=== PATIENT | male | born 1975 | race Caucasian/White ===

== ENCOUNTER 2017-01-03 20:30 | Outpatient (CLI) | payer BC | END 2017-01-04 07:05 | disposition home or self-care (01) | LOC: SLEEP 20:30 | PROVIDERS: ATTEND Nurse Practitioner | DX: Z93.0 Tracheostomy status; G47.33 Obstructive sleep apnea (adult) (pediatric) | CPT/HCPCS: 95810 ==

== ENCOUNTER → 2017-02-01 | Outpatient (CLI) | payer BC ==
--- NOTE | 2017-02-01 13:56 | Diagnostic Imaging Report ---
EXAMINATION: PA and lateral views of the chest. INDICATION: Sleep apnea. Narcosis. FINDINGS: There is pulmonary hyperinflation and prominence of the interstitial markings. No prior studies are available to assess for chronicity. No focal airspace opacity. No effusion or pneumothorax. The heart size is borderline enlarged. The mediastinum and celso appear unremarkable. IMPRESSION: Borderline cardiac size. Mild prominence of the interstitial markings without focal airspace consolidation. Dictated by: Dictated on workstation # [id number]
== END ==
LOC: LAB 12:26
PROVIDERS: ATTEND Internal Medicine Critical Care Medicine
DX: G47.30 Sleep apnea, unspecified (principal); R06.89 Other abnormalities of breathing
CPT/HCPCS: 71020

== ENCOUNTER 2017-04-11 22:06 | Emergency (ER) | payer BC ==
[~2017-04-11] VITALS: Ht 170.2 cm; Wt 47.2 kg
[~2017-04-11 22:06] MED LIST: FURO40TA4 PO; LOSA25TA21 PO; METO-333 PO; PRED10TA22 PO; SPIR25TA3 PO
[2017-04-11] MEDS ORDERED: ONDANSETRON 4 MG/2 ML (SDV) Z0FRAN IVP ONE (22:45)
[2017-04-11] MEDS ORDERED: ACETAMINOPHEN 500 MG TAB (TYLENOL) PO PRN (22:45)
[2017-04-11] MEDS ORDERED: NS IV 500 ML 500 ML IV ONE (22:50)
--- NOTE | 2017-04-11 22:50 | ED Respiratory ---
General Chief Complaint: Cough/Cold/Flu Symptoms Stated Complaint: FLU SYMPTOMS Source: patient, family (mom dad and ) Exam Limitations: no limitations History of Present Illness Time seen by provider: 22:39 Initial Comments Patient present ER by private conveyance with a significant history of muscular dystrophy. He has a significant chief complaint of today started experiencing some nasal and chest congestion, occasional dry nonproductive cough and feeling of chills like he had a fever. He did get his flu shot. He was in the hospital in January with pneumonia and has been doing well since then and is worried and wants to get on top of this if he has the flu. 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 He has a little nausea but no vomiting, no rash diarrhea, constipation, abdominal pain or chest pain. He has no headache, ear pain, epistaxis. He does have some clear rhinorrhea. He took some Zicam at noon and that helps with his symptoms a lot but then he started chilling about an hour or 2 before coming in so he decided to come and get checked out. The patient does not use oxygen or ventilators during the day but he does sleep on the ventilator and has a tracheostomy fenestrated with a button. He says his oxygen sats typically run 85 -90% on room air. Allergies and Home Medications Allergies Coded Allergies: levofloxacin (Verified Allergy, Unknown, 02/02/17) Home Medications Furosemide 40 Mg Tablet, 40 MG PO DAILY, (Reported) LAST FILLED 12/13/16 #30 Losartan Potassium 25 Mg Tablet, 25 MG PO DAILY, #30 Prescribed by: EVITA DIAS on 02/16/17 1436 Metoprolol Tartrate 25 Mg Tablet, 25 MG PO BID, #30 Prescribed by: EVITA DIAS on 02/16/17 1436 Prednisone 10 Mg Tab.ds.pk, 10 MG PO DAILY, #21 Take 6 tabs(60mg)daily,decrease by 1 tab(10MG)daily. Prescribed by: EVITA DIAS on 02/16/17 1436 Constitutional: chills, fever, malaise EENTM: nose congestion, throat pain, No ear discharge, No hearing loss, No ear pain, No eye pain, No nose pain Respiratory: cough, No phlegm, No short of breath, No wheezing Cardiovascular: No chest pain, No palpitations, No syncope Gastrointestinal: No abdominal pain, No constipation, No diarrhea, nausea Genitourinary: No discharge, No dysuria Musculoskeletal: No back pain, No joint pain Skin: No pruritus, No rash Psychiatric/Neurological: Denies Headache, Denies Numbness, Denies Paresthesia Past Yqabizs-Amqwzu-Uqlnvk Hx Patient Social History Alcohol Use: Denies Use Recreational Drug Use: No Smoking Status: Never a Smoker Recent Foreign Travel: No Contact w/Someone Who Travel: No Recent Hopitalizations: Yes (january- pneumonia/chf) Physical Abuse: No Sexual Abuse: No Mistreated: No Fear: No Immunizations Up To Date Tetanus Booster (TDap): Less than 5yrs Date of Pneumonia Vaccine: Jan 12, 2015 Date of Influenza Vaccine: Feb 07, 2017 Seasonal Allergies Seasonal Allergies: No Surgeries History of Surgeries: Yes (cleft palate, trach) Surgeries: Abdominal, Testicular, Tracheostomy Respiratory History of Respiratory Disorde: Yes (TRACHEOSTOMY) Respiratory Disorders: Sleep Apnea Currently Using CPAP: Yes Cardiovascular History of Cardiac Disorders: Yes (CHF, EF 40-45%, CARDIAC ARREST (2002)) Cardiac Disorders: Cardiomyopathy Neurological History of Neurological Disord: Yes (MUSCULAR DYSTROPHY) Genitourinary History of Genitourinary Disor: No Gastrointestinal History of Gastrointestinal Di: No Musculoskeletal History of Musculoskeletal Dis: No Endocrine History of Endocrine Disorders: Yes HEENT History of HEENT Disorders: Yes (CLEFT PALATE/LIP, TRACHEOSTOMY) Cancer History of Cancer: No Psychosocial History of Psychiatric Problem: No Suicide Risk Score: 1 Integumentary History of Skin or Integumenta: No Blood Transfusions History of Blood Disorders: No Adverse Reaction to a Blood Tr: No Family Medical History Significant Family History: No Pertinent Family Hx Family Medial History: Physical Exam Vital Signs Vital Sign - Last 12Hours 04/11/17 22:20 Temp 100.8 Pulse 103 Resp 20 B/P (MAP) 146/74 (98) Pulse Ox 93 O2 Delivery Room Air O2 Flow Rate 92.00 Capillary Refill : General Appearance: no apparent distress, thin Eyes: Bilateral Eye Normal Inspection, Bilateral Eye PERRL, Bilateral Eye EOMI HEENT: PERRL/EOMI, normal ENT inspection, pharynx normal, pharyngeal erythema, other Neck: non-tender, normal inspection Respiratory: chest non-tender, no respiratory distress, no accessory muscle use , rhonchi (few scattered left lower) Cardiovascular: normal peripheral pulses, regular rate, rhythm, no edema Gastrointestinal: non tender, soft Extremities: normal range of motion, normal inspection, no pedal edema, normal capillary refill Neurologic/Psychiatric: alert, normal mood/affect, oriented x 3 Skin: normal color, warm/dry Lymphatic: no adenopathy Focused Exam Evaluation Lactate Level Laboratory Tests 04/11/17 22:31: Lactic Acid Level 0.62 Lactic Acid Level Laboratory Tests Test 04/11/17 22:31 Lactic Acid Level 0.62 MMOL/L (0.50-2.00) Progress/Results/Core Measures Suspected Sepsis SIRS Temperature: Pulse: Respiratory Rate: Laboratory Tests 04/11/17 22:31: White Blood Count 9.6 Blood Pressure / Mean: Laboratory Tests 04/11/17 22:31: Lactic Acid Level 0.62 Laboratory Tests 04/11/17 22:31: Creatinine 0.49L, INR Comment 1.0, Platelet Count 259, Total Bilirubin 0.9 Results/Orders Lab Results Laboratory Tests Test 04/11/17 22:31 04/11/17 23:05 04/12/17 00:07 Range/Units White Blood Count 9.6 4.3-11.0 10^3/uL Red Blood Count 4.94 4.35-5.85 10^6/uL Hemoglobin 13.6 13.3-17.7 G/DL Hematocrit 43 40-54 % Mean Corpuscular Volume 88 80-99 FL Mean Corpuscular Hemoglobin 28 25-34 PG Mean Corpuscular Hemoglobin Concent 31 L 32-36 G/DL Red Cell Distribution Width 20.3 H 10.0-14.5 % Platelet Count 259 130-400 10^3/uL Mean Platelet Volume 9.0 7.4-10.4 FL Neutrophils (%) (Auto) 83 H 42-75 % Lymphocytes (%) (Auto) 10 L 12-44 % Monocytes (%) (Auto) 8 0-12 % Eosinophils (%) (Auto) 0 0-10 % Basophils (%) (Auto) 0 0-10 % Neutrophils # (Auto) 7.9 H 1.8-7.8 X 10^3 Lymphocytes # (Auto) 0.9 L 1.0-4.0 X 10^3 Monocytes # (Auto) 0.7 0.0-1.0 X 10^3 Eosinophils # (Auto) 0.0 0.0-0.3 10^3/uL Basophils # (Auto) 0.0 0.0-0.1 10^3/uL Prothrombin Time 13.7 12.2-14.7 SEC INR Comment 1.0 0.8-1.4 Activated Partial Thromboplast Time 33 24-35 SEC Sodium Level 140 135-145 MMOL/L Potassium Level 3.9 3.6-5.0 MMOL/L Chloride Level 96 L 98-107 MMOL/L Carbon Dioxide Level 30 21-32 MMOL/L Anion Gap 14 5-14 MMOL/L Blood Urea Nitrogen 9 7-18 MG/DL Creatinine 0.49 L 0.60-1.30 MG/DL Estimat Glomerular Filtration Rate > 60 BUN/Creatinine Ratio 18 Glucose Level 120 H 70-105 MG/DL Lactic Acid Level 0.62 0.50-2.00 MMOL/L Calcium Level 9.7 8.5-10.1 MG/DL Total Bilirubin 0.9 0.1-1.0 MG/DL Aspartate Amino Transf (AST/SGOT) 54 H 5-34 U/L Alanine Aminotransferase (ALT/SGPT) 39 0-55 U/L Alkaline Phosphatase 77 40-136 U/L Total Protein 6.5 6.4-8.2 GM/DL Albumin 4.0 3.2-4.5 GM/DL Group A Streptococcus Screen NEGATIVE NEGATIVE Urine Color YELLOW Urine Clarity SLIGHTLY CLOUDY Urine pH 5 5-9 Urine Specific [place] 1.025 H 1.016-1.022 Urine Protein 1+ H NEGATIVE Urine Glucose (UA) NEGATIVE NEGATIVE Urine Ketones 2+ H NEGATIVE Urine Nitrite NEGATIVE NEGATIVE Urine Bilirubin NEGATIVE NEGATIVE Urine Urobilinogen 1 NORMAL MG/DL Urine Leukocyte Esterase 1+ H NEGATIVE Urine RBC (Auto) NEGATIVE NEGATIVE Urine RBC NONE /HPF Urine WBC 2-5 /HPF Urine Squamous Epithelial Cells 2-5 /HPF Urine Crystals NONE /LPF Urine Bacteria TRACE /HPF Urine Casts PRESENT /LPF Urine Hyaline Casts RARE /LPF Urine Mucus MODERATE H /LPF Urine Culture Indicated NO Micro Results Microbiology 04/11/17 Influenza Types A,B Antigen (SHIMA) - Final, Complete My Orders Orders - NAVI MATIAS Chest Pa/Lat (2 View) (04/11/17 22:42) Cbc With Automated Diff (04/11/17 22:42) Comprehensive Metabolic Panel (04/11/17 22:42) Lactic Acid Analyzer (04/11/17 22:42) Blood Culture (04/11/17 22:42) Sputum Culture (04/11/17 22:42) Ua Culture If Indicated (04/11/17 22:42) Protime With Inr (04/11/17 22:42) Partial Thromboplastin Time (04/11/17 22:42) O2 (04/11/17 22:42) Acetaminophen Tablet (Tylenol Tablet) (04/11/17 22:45) Saline Lock/Iv-Start (04/11/17 22:42) Vital Signs Adult Sepsis Patie Q1H (04/11/17 22:42) Remove Rings In Anticipation O (04/11/17 22:42) Influenza A And B Antigens (04/11/17 22:42) Ondansetron Injection (Zofran Injectio (04/11/17 22:45) Rapid Strep A Screen (04/11/17 22:42) Ceftriaxone Injection (Rocephin Injectio (04/11/17 23:00) Ns Iv 500 Ml (Sodium Chloride 0.9%) (04/11/17 22:50) Medications Given in ED Current Medications Medications Dose Ordered Sig/Yaneth Route Start Time Stop Time Status Last Admin Dose Admin Acetaminophen 1,000 mg ONCE PRN PO 04/11/17 22:45 04/11/17 22:55 DC 04/11/17 22:54 1,000 MG Ceftriaxone Sodium 1000 mg/ Sodium Chloride 50 ml @ 100 mls/hr ONCE ONCE IV 04/11/17 23:00 04/11/17 23:29 DC 04/11/17 22:59 100 MLS/HR Ondansetron HCl 4 mg ONCE ONCE IVP 04/11/17 22:45 04/11/17 22:46 DC 04/11/17 22:53 4 MG Sodium Chloride 500 ml @ 0 mls/hr Q0M ONCE IV 04/11/17 22:50 04/11/17 22:51 DC 04/11/17 22:59 0 MLS/HR Vital Signs/I&O Vital Sign - Last 12Hours 04/11/17 04/11/17 04/11/17 04/11/17 22:20 22:20 22:46 23:00 Temp 100.8 100.8 Pulse 103 94 Resp 20 20 B/P (MAP) 146/74 (98) 113/63 Pulse Ox 93 92 90 O2 Delivery Room Air Room Air Room Air Room Air O2 Flow Rate 92.00 04/11/17 04/12/17 23:30 00:00 Pulse 78 89 Resp 20 18 B/P (MAP) 127/54 112/61 Pulse Ox 92 91 O2 Delivery Room Air Room Air Capillary Refill : Progress Note #1: Time: 22:49 Progress Note His sats of been in the upper 80s to low 90s since he's been here on room air. We'll get a chest x-ray to evaluate those possible rales heard. We'll check for influenza want him for strep. Because of his tachycardia in the low 100 110 range we will also start a sepsis workup. Respiratory seems most likely case so Rocephin apparently good place to start for antibiotics. Progress Note #2: Time: 00:54 Progress Note Vitals been fine since he's been here he's had nonproductive cough only occasionally. X-rays unremarkable labs unremarkable for any blood let him go home with precautions for return and treatment options for the cold. Diagnostic Imaging Diagonstic Imaging: Xray Plain Films/CT/US/NM/MRI: chest (2v) Comments No acute cardiopulmonary processes noted. Fenestrate a tracheostomy in place. Reviewed: Reviewed by Me Departure Impression Impression: Primary Impression: Upper respiratory infection Qualified Codes: J06.9 - Acute upper respiratory infection, unspecified; B97.89 - Other viral agents as the cause of diseases classified elsewhere Disposition: 01 HOME, SELF-CARE Condition: Stable Departure-Patient Inst. Decision time for Depature: 00:55 Referrals: GLEN CLEMENTS MD (PCP) Primary Care Physician Patient Instructions: Viral Upper Respiratory Infection, Adult (DC) Add. Discharge Instructions: Plenty of fluids use Tylenol 1000 mg every 8 hours and or ibuprofen 800 mg every 8 hours as needed for body aches, chills, fever. You can use over-the- counter cough and cold remedies as necessary for your symptoms. Get some rest and if you start developing high fevers but did not get better over the next 5- 7 days or other symptoms such as productive cough, nausea, chest pain, shortness of breath he should return to the ER or to your primary care physician for reevaluation. All discharge instructions reviewed with patient and/or family. Voiced understanding. Copy Copies To 1: GLEN CLEMENTS MD, TITUS J Apr 11, 2017 22:50
[2017-04-11 22:52] LABS: BASOPHILS % (AUTO) 0 % (0-10); EOSINOPHILS % (AUTO) 0 % (0-10); HEMATOCRIT 43 % (40-54); HEMOGLOBIN 13.6 G/DL (13.3-17.7); LYMPHOCYTES # (AUTO) 0.9 X 10^3 (1.0-4.0); LYMPHOCYTES % (AUTO) 10 % (12-44); MEAN CORPUSCULAR HEMOGLOBIN 28 PG (25-34); MEAN CORPUSCULAR HGB CONC 31 G/DL (32-36); MEAN CORPUSCULAR VOLUME 88 FL (80-99); MONOCYTES # (AUTO) 0.7 X 10^3 (0.0-1.0); MONOCYTES % (AUTO) 8 % (0-12); NEUTROPHILS # (AUTO) 7.9 X 10^3 (1.8-7.8); NEUTROPHILS % (AUTO) 83 % (42-75); PLATELET COUNT 259 10^3/uL (130-400); RED BLOOD COUNT 4.94 10^6/uL (4.35-5.85); RED CELL DISTRIBUTION WIDTH 20.3 % (10.0-14.5); WHITE BLOOD COUNT 9.6 10^3/uL (4.3-11.0)
[2017-04-11] MEDS ORDERED: cefTRIAXone INJECTION 1,000 MG in NS (IVPB) 50 ML IV ONE (23:00)
[2017-04-11 23:02] LABS: PROTHROMBIN TIME PATIENT 13.7 SEC (12.2-14.7)
[2017-04-11 23:03] LABS: ALANINE AMINOTRANSFERASE 39 U/L (0-55); ALKALINE PHOSPHATASE 77 U/L (40-136); BILIRUBIN,TOTAL 0.9 MG/DL (0.1-1.0); BUN/CREATININE RATIO 18; CALCIUM 9.7 MG/DL (8.5-10.1); CARBON DIOXIDE 30 MMOL/L (21-32); CHLORIDE 96 MMOL/L (98-107); CREATININE SERUM 0.49 MG/DL (0.60-1.30); GFR ESTIMATED > 60; GLUCOSE 120 MG/DL (70-105); POTASSIUM 3.9 MMOL/L (3.6-5.0); SODIUM 140 MMOL/L (135-145); TOTAL PROTEIN 6.5 GM/DL (6.4-8.2)
[2017-04-12 00:20] LABS: BILIRUBIN,URINE NEGATIVE (NEGATIVE); CLARITY,URINE SLIGHTLY CLOUDY; GLUCOSE, URINE (UA) NEGATIVE (NEGATIVE); KETONES,URINE 2+ (NEGATIVE); LEUKOCYTE ESTERASE ,URINE 1+ (NEGATIVE); NITRITE,URINE NEGATIVE (NEGATIVE); PH,URINE 5 (5-9); PROTEIN,URINE 1+ (NEGATIVE); UROBILINOGEN,URINE 1 MG/DL (NORMAL)
[2017-04-12 00:21] LABS: COLOR,URINE YELLOW
[2017-04-12 00:26] LABS: BACTERIA,URINE TRACE /HPF; HYALINE CASTS, URINE RARE /LPF
[2017-04-12 01:11] VITALS: BP 115/60
--- NOTE | 2017-04-12 06:32 | Diagnostic Imaging Report ---
Indication: Shortness of breath PA and lateral chest Patient has a tracheostomy tube. Heart size and pulmonary vascularity are normal. Lungs are clear. There are no effusions or pneumothoraces. Impression: No acute abnormalities in the chest Dictated by: Dictated on workstation # [id number]
== END 2017-04-12 01:11 | disposition home or self-care (01) ==
LOC: EDUNIT# 22:06 → ER 22:07
DX: J06.9 Acute upper respiratory infection, unspecified (principal); I42.9 Cardiomyopathy, unspecified; G47.30 Sleep apnea, unspecified; I50.9 Heart failure, unspecified; Z98.890 Other specified postprocedural states; Z86.74 Personal history of sudden cardiac arrest; Z87.01 Personal history of pneumonia (recurrent)
CPT/HCPCS: 36415; 71046; 80053; 81000; 83605; 85025; 85610; 85730; 87040; 87430; 87804; 96361; 96365; 96375

== ENCOUNTER → 2017-04-18 | Outpatient (CLI) | payer BC ==
--- NOTE | 2017-04-18 12:46 | Diagnostic Imaging Report ---
INDICATION: Pneumonia. COMPARISON: Comparison made with prior examination 04/11/2017. FINDINGS: The heart size is normal. Some left basilar atelectasis and/or pneumonitis. There appears to be a small left pleural effusion. No pneumothorax. Mediastinum is unremarkable. Tracheostomy tube remains in place. IMPRESSION: Interval development of some left basilar atelectasis and/or pneumonitis and small left pleural effusion. Dictated by: Dictated on workstation # [id number]
== END ==
LOC: RAD 11:20
PROVIDERS: ATTEND Nurse Practitioner Family
DX: J18.9 Pneumonia, unspecified organism (principal); J90 Pleural effusion, not elsewhere classified; J96.20 Acute and chronic respiratory failure, unspecified whether with hypoxia or hypercapnia
CPT/HCPCS: 71046

== ENCOUNTER 2019-01-04 23:53 | Inpatient (IN) | payer BC ==
[~2019-01-04] VITALS: Ht 170.2 cm; Wt 64.1 kg
[~2019-01-04 23:53] MED LIST changes: -LOSA25TA21 PO; +LOSA25TA41 PO; -SPIR25TA3 PO; +SPIR25TA5 PO
[2019-01-05] VITALS (9 sets, daily range): BP systolic 95–123; BP diastolic 55–72
[2019-01-05] MEDS ORDERED: FAMOTIDINE 20 MG (PEPCID) TABLET PO STA (00:37)
[2019-01-05] MEDS ORDERED: LACTATED RINGERS 1,000 ML IV ONE (00:37)
[2019-01-05] MEDS ORDERED: ANTACID SUSP 30 ML UDC (MYLANTA) PO ONE (00:45)
[2019-01-05] MEDS ORDERED: ASPIRIN 81 MG CHEW (CHILDREN'S ASA) PO ONE (00:45)
[2019-01-05] MEDS ORDERED: LIDOCAINE 2% VISCOUS 15 ML UDC PO ONE (00:45)
--- NOTE | 2019-01-05 00:45 | ED Abdominal Pain ---
General Stated Complaint: ABD PAIN Source of Information: Patient, Spouse Exam Limitations: No Limitations History of Present Illness Date Seen by Provider: Jan 05, 2019 Time Seen by Provider: 00:30 Initial Comments Epigastric abdominal pain intermittently over the last week. He has not seen anyone for it. He is not having any nausea or diarrhea. He had a bowel movement earlier today. He has a history of multiple sclerosis, wheelchair bound and history of severe sleep apnea which resulted in him having a tracheostomy placed. He is not having any coughing or shortness of breath and does not require oxygen. He does use a ventilator at night on the tracheostomy to help with his sleep apnea. No history of asthma. He says he smoked twice in his life. He uses DuoNeb, inhaled corticosteroids and LABA. He tried Pepto-Bismol with no relief tonight. No nausea or vomiting. He's had no abdominal surgeries or trauma. He had pizza for dinner last night. Allergies and Home Medications Allergies Coded Allergies: levofloxacin (Verified Allergy, Unknown, 02/02/17) Home Medications Furosemide 40 Mg Tablet, 40 MG PO DAILY, (Reported) LAST FILLED 12/13/16 #30 Losartan Potassium 25 Mg Tablet, 25 MG PO DAILY Prescribed by: EVITA MORROW on 02/16/17 1436 Metoprolol Tartrate 25 Mg Tablet, 25 MG PO BID Prescribed by: EVITA MORROW on 02/16/17 1436 Prednisone 10 Mg Tab.ds.pk, 10 MG PO DAILY Take 6 tabs(60mg)daily,decrease by 1 tab(10MG)daily. Prescribed by: EVITA MORROW on 02/16/17 1436 Patient Home Medication List Home Medication List Reviewed: Yes Review of Systems Review of Systems Constitutional: No chills, No fever EENTM: No Blurred Vision, No Double Vision Respiratory: Denies Cough, Denies Shortness of Air Cardiovascular: Denies Chest Pain, Denies Edema Gastrointestinal: See HPI; Denies Abdomen Distended; Abdominal Pain; Denies Constipated, Denies Diarrhea, Denies Nausea, Denies Poor Fluid Intake, Denies Vomiting Genitourinary: Denies Burning, Denies Discharge, Denies Drainage Past Tckaktt-Htzuhp-Cwiwjo Hx Patient Social History Alcohol Use: Occasionally Uses Recreational Drug Use: No Smoking Status: Never a Smoker Recent Foreign Travel: No Contact w/Someone Who Travel: No Recent Hopitalizations: Yes (october- sepsis pneumonia/chf) Immunizations Up To Date Tetanus Booster (TDap): Less than 5yrs Date of Pneumonia Vaccine: Jan 12, 2015 Date of Influenza Vaccine: Feb 07, 2017 Seasonal Allergies Seasonal Allergies: No Past Medical History Surgeries: Yes (cleft palate, trach) Abdominal, Testicular, Tracheostomy Respiratory: Yes (TRACHEOSTOMY) Sleep Apnea Currently Using CPAP: Yes Cardiac: Yes (CHF, EF 40-45%, CARDIAC ARREST (2002)) Cardiomyopathy Neurological: Yes (MUSCULAR DYSTROPHY) Genitourinary: No Gastrointestinal: No Musculoskeletal: No Endocrine: Yes HEENT: Yes (CLEFT PALATE/LIP, TRACHEOSTOMY) Cancer: No Psychosocial: No Integumentary: No Blood Disorders: No Adverse Reaction/Blood Tranf: No Family Medical History No Pertinent Family Hx Physical Exam Vital Signs Vital Signs - First Documented 01/05/19 00:17 Temp 36.7 Pulse 79 Resp 20 B/P (MAP) 158/91 (113) Pulse Ox 98 O2 Delivery OxyMask O2 Flow Rate 10.00 Capillary Refill : Height/Weight/BMI Height: 5'7.00" Weight: 104lbs. 8.0oz. 47.966116fh; 17.0 BMI Method:Stated General Appearance: mild distress, thin HEENT: PERRL/EOMI, TMs normal, pharynx normal Neck: full range of motion, normal inspection Respiratory: no accessory muscle use, respiratory distress (mild), crackles (right base) Cardiovascular: normal peripheral pulses, regular rate, rhythm, tachycardia Peripheral Pulses: 2+ Dorsalis Pedis (R), 2+ Left Dors-Pedis (L), 2+ Radial Pulses (R), 2+ Radial Pulses (L) Gastrointestinal: normal bowel sounds, soft, no organomegaly, tenderness (epigastric) Extremities: normal inspection, no pedal edema, normal capillary refill Neurologic/Psychiatric: alert, normal mood/affect, oriented x 3 Skin: normal color, warm/dry Progress/Results/Core Measures Results/Orders Lab Results Laboratory Tests Test 01/05/19 00:37 01/05/19 00:58 01/05/19 01:11 Range/Units White Blood Count 16.7 H 4.3-11.0 10^3/uL Red Blood Count 5.09 4.35-5.85 10^6/uL Hemoglobin 15.2 13.3-17.7 G/DL Hematocrit 48 40-54 % Mean Corpuscular Volume 94 80-99 FL Mean Corpuscular Hemoglobin 30 25-34 PG Mean Corpuscular Hemoglobin Concent 32 32-36 G/DL Red Cell Distribution Width 13.8 10.0-14.5 % Platelet Count 296 130-400 10^3/uL Mean Platelet Volume 9.6 7.4-10.4 FL Neutrophils (%) (Auto) 89 H 42-75 % Lymphocytes (%) (Auto) 7 L 12-44 % Monocytes (%) (Auto) 4 0-12 % Eosinophils (%) (Auto) 0 0-10 % Basophils (%) (Auto) 0 0-10 % Neutrophils # (Auto) 14.9 H 1.8-7.8 X 10^3 Lymphocytes # (Auto) 1.2 1.0-4.0 X 10^3 Monocytes # (Auto) 0.6 0.0-1.0 X 10^3 Eosinophils # (Auto) 0.0 0.0-0.3 10^3/uL Basophils # (Auto) 0.0 0.0-0.1 10^3/uL Sodium Level 141 135-145 MMOL/L Potassium Level 3.7 3.6-5.0 MMOL/L Chloride Level 98 98-107 MMOL/L Carbon Dioxide Level 32 21-32 MMOL/L Anion Gap 11 5-14 MMOL/L Blood Urea Nitrogen 9 7-18 MG/DL Creatinine 0.53 L 0.60-1.30 MG/DL Estimat Glomerular Filtration Rate > 60 BUN/Creatinine Ratio 17 Glucose Level 127 H 70-105 MG/DL Calcium Level 9.8 8.5-10.1 MG/DL Corrected Calcium 9.6 8.5-10.1 MG/DL Total Bilirubin 0.4 0.1-1.0 MG/DL Aspartate Amino Transf (AST/SGOT) 49 H 5-34 U/L Alanine Aminotransferase (ALT/SGPT) 48 0-55 U/L Alkaline Phosphatase 99 40-136 U/L Troponin I < 0.028 <0.028 NG/ML C-Reactive Protein High Sensitivity 2.16 H 0.00-0.50 MG/DL B-Type Natriuretic Peptide < 10.0 <100.0 PG/ML Total Protein 7.5 6.4-8.2 GM/DL Albumin 4.3 3.2-4.5 GM/DL Lipase 34 8-78 U/L Blood Gas Puncture Site LEFT RADIAL Blood Gas Patient Temperature 36.7 Arterial Blood pH 7.35 L 7.37-7.43 Arterial Blood Partial Pressure CO2 61 H 35-45 MMHG Arterial Blood Partial Pressure O2 77 L 79-93 MMHG Arterial Blood HCO3 33 H 23-27 MMOL/L Arterial Blood Total CO2 34.8 H 21.0-31.0 MMOL/L Arterial Blood Oxygen Saturation 94 94-100 % Arterial Blood Base Excess 7.6 H -2.5-2.5 MMOL/L Jose Antonio Test POSITIVE Blood Gas Ventilator Setting NO Blood Gas Inspired Oxygen 10 BLOW BY Urine Color YELLOW Urine Clarity CLEAR Urine pH 7 5-9 Urine Specific [place] 1.020 1.016-1.022 Urine Protein NEGATIVE NEGATIVE Urine Glucose (UA) NEGATIVE NEGATIVE Urine Ketones 3+ H NEGATIVE Urine Nitrite NEGATIVE NEGATIVE Urine Bilirubin NEGATIVE NEGATIVE Urine Urobilinogen NORMAL NORMAL MG/DL Urine Leukocyte Esterase 2+ H NEGATIVE Urine RBC (Auto) NEGATIVE NEGATIVE Urine RBC RARE /HPF Urine WBC 10-25 H /HPF Urine Squamous Epithelial Cells 0-2 /HPF Urine Crystals NONE /LPF Urine Bacteria FEW H /HPF Urine Casts NONE /LPF Urine Mucus MODERATE H /LPF Urine Culture Indicated YES My Orders Orders - NAVI MATIAS Ua Culture If Indicated (01/04/19 23:54) Chest 1 View, Ap/Pa Only (01/05/19 00:37) BNP (01/05/19 00:37) Cbc With Automated Diff (01/05/19 00:37) Comprehensive Metabolic Panel (01/05/19 00:37) Hs C Reactive Protein (01/05/19 00:37) Lipase (01/05/19 00:37) Troponin I (01/05/19 00:37) Ed Iv/Invasive Line Start (01/05/19 00:37) Lactated Ringers (Lr 1000 Ml Iv Solution (01/05/19 00:37) Aspirin Chewable Tablet (Baby Aspirin Ch (01/05/19 00:45) Lidocaine 2% Viscous 15 Ml (Xylocaine Vi (01/05/19 00:45) Famotidine Tablet (Pepcid Tablet) (01/05/19 00:37) Antacid Suspension (Mylanta Suspension (01/05/19 00:45) Continuous Ekg Monitoring (01/05/19 00:37) Ekg Tracing (01/05/19 00:37) O2 (01/05/19 00:37) Manual Differential (01/05/19 00:37) Arterial Blood Gas (01/05/19 01:03) Urine Culture (01/05/19 01:11) Ceftriaxone For Iv Use (Rocephin For I (01/05/19 01:45) Azithromycin Injection (Zithromax Inject (01/05/19 01:45) Medications Given in ED Current Medications Medications Dose Ordered Sig/Yaneth Route Start Time Stop Time Status Last Admin Dose Admin Al Hydrox/Mg Hydrox/Simethicone 30 ml ONCE ONCE PO 01/05/19 00:45 01/05/19 00:46 DC 01/05/19 00:56 30 ML Aspirin 324 mg ONCE ONCE PO 01/05/19 00:45 01/05/19 00:46 DC 01/05/19 00:55 324 MG Lactated Ringer's 1,000 ml @ 0 mls/hr Q0M ONCE IV 01/05/19 00:37 01/05/19 00:42 DC 01/05/19 00:56 1,000 MLS/HR Lidocaine HCl 15 ml ONCE ONCE PO 01/05/19 00:45 01/05/19 00:46 DC 01/05/19 00:56 15 ML Vital Signs/I&O 01/05/19 00:17 Temp 36.7 Pulse 79 Resp 20 B/P (MAP) 158/91 (113) Pulse Ox 98 O2 Delivery OxyMask O2 Flow Rate 10.00 Progress Progress Note : Time: 02:29 Progress Note GI cocktail is helping his epigastric pain some but he still having some mild pain so we'll give him some Toradol. ABG demonstrates CO2 retention, hypoxia which correlates with the hypoxia seen on the monitor. Possible right lower lobe infiltrate along with the crackles heard and history of productive cough but no fevers. We'll treat him for pneumonia and the patient. The patient brought his own ventilator support and allow respiratory set that up for him along with some oxygen and put him on stepdown. Initial ECG Impression Date: Jan 05, 2019 Initial ECG Impression Time: 01:30 Initial ECG Rate: 96 Initial ECG Rhythm: Normal Sinus Initial ECG Intervals: QT (471) Initial ECG Impression: Normal Comment Normal sinus rhythm incomplete right bundle-branch block no clinically evident ST elevation or depression. Mild tremor artifact. Diagnostic Imaging Diagonstic Imaging: Xray Plain Films/CT/US/NM/MRI: chest Comments Some pneumonitis versus infiltrate right lower lobe Reviewed: Reviewed by Me Departure Communication (Admissions) Time/Spoke to Admitting Phy: 02:45 Discussed the case, labs, EKG, chest x-ray the and workup with Dr. Morrow. She agrees to admit the patient on a ventilator and consult pulmonology morning. Impression Primary Impression: Pneumonia Qualified Codes: J18.1 - Lobar pneumonia, unspecified organism Additional Impressions: Acute on chronic respiratory failure with hypoxia and hypercapnia Epigastric pain Disposition: ADMITTED INPATIENT Condition: Stable Admissions Decision to Admit Reason: Admit from ER (General) Decision to Admit/Date: Jan 05, 2019 Time/Decision to Admit Time: 02:27 Departure-Patient Inst. Referrals: GLEN CLEMENTS MD (PCP/Family) Primary Care Physician NAVI MATIAS Jan 05, 2019 00:45
[2019-01-05 00:53] LABS: BASOPHILS % (AUTO) 0 % (0-10); EOSINOPHILS % (AUTO) 0 % (0-10); HEMATOCRIT 48 % (40-54); HEMOGLOBIN 15.2 G/DL (13.3-17.7); LYMPHOCYTES # (AUTO) 1.2 X 10^3 (1.0-4.0); LYMPHOCYTES % (AUTO) 7 % (12-44); MEAN CORPUSCULAR HEMOGLOBIN 30 PG (25-34); MEAN CORPUSCULAR HGB CONC 32 G/DL (32-36); MEAN CORPUSCULAR VOLUME 94 FL (80-99); MEAN PLATELET VOLUME 9.6 FL (7.4-10.4); MONOCYTES # (AUTO) 0.6 X 10^3 (0.0-1.0); MONOCYTES % (AUTO) 4 % (0-12); NEUTROPHILS # (AUTO) 14.9 X 10^3 (1.8-7.8); NEUTROPHILS % (AUTO) 89 % (42-75); PLATELET COUNT 296 10^3/uL (130-400); RED CELL DISTRIBUTION WIDTH 13.8 % (10.0-14.5); WHITE BLOOD COUNT 16.7 10^3/uL (4.3-11.0)
[2019-01-05 01:11] LABS: ABG BASE EXCESS 7.6 MMOL/L (-2.5-2.5); ABG OXYGEN SATURATION 94 % (94-100); ABG PCO2 61 MMHG (35-45); ABG PH 7.35 (7.37-7.43); ABG PO2 77 MMHG (79-93); ABG TCO2 34.8 MMOL/L (21.0-31.0); ALLENS TEST POSITIVE; INSPIRED O2 10 BLOW BY; PATIENT TEMP 36.7; VENTILATOR NO
[2019-01-05 01:11] LABS: ALANINE AMINOTRANSFERASE 48 U/L (0-55); ALBUMIN 4.3 GM/DL (3.2-4.5); ALKALINE PHOSPHATASE 99 U/L (40-136); BILIRUBIN,TOTAL 0.4 MG/DL (0.1-1.0); BUN/CREATININE RATIO 17; CALCIUM 9.8 MG/DL (8.5-10.1); CARBON DIOXIDE 32 MMOL/L (21-32); CHLORIDE 98 MMOL/L (98-107); CREATININE SERUM 0.53 MG/DL (0.60-1.30); GFR ESTIMATED > 60; GLUCOSE 127 MG/DL (70-105); LIPASE 34 U/L (8-78); POTASSIUM 3.7 MMOL/L (3.6-5.0); SODIUM 141 MMOL/L (135-145); TOTAL PROTEIN 7.5 GM/DL (6.4-8.2)
[2019-01-05 01:19] LABS: BILIRUBIN,URINE NEGATIVE (NEGATIVE); CLARITY,URINE CLEAR; COLOR,URINE YELLOW; GLUCOSE, URINE (UA) NEGATIVE (NEGATIVE); KETONES,URINE 3+ (NEGATIVE); LEUKOCYTE ESTERASE ,URINE 2+ (NEGATIVE); NITRITE,URINE NEGATIVE (NEGATIVE); PH,URINE 7 (5-9); PROTEIN,URINE NEGATIVE (NEGATIVE); UROBILINOGEN,URINE NORMAL (NORMAL)
[2019-01-05 01:33] LABS: BACTERIA,URINE FEW /HPF; RBC,URINE RARE /HPF; SQUAMOUS EPITHELIAL CELL,UR 0-2 /HPF
[2019-01-05] MEDS ORDERED: cefTRIAXone FOR IV USE 1,000 MG in WATER (STERILE) FOR INJECTION 10 ML IV ONE (01:45)
[2019-01-05] MEDS ORDERED: AZITHROMYCIN INJECTION 500 MG in NS (IVPB) 250 ML IV ONE (01:45)
[2019-01-05] MEDS ORDERED: KETOROLAC 30 MG/ML VIAL IVP ONE (02:45)
[2019-01-05] MEDS ORDERED: NS W/KCL 20 MEQ/L 1,000 ML IV SCH (03:00)
[2019-01-05 03:34] LABS: LYMPHOCYTES % (MANUAL) 8 %; MONOCYTES % (MANUAL) 3 %; NEUTROPHILS % (MANUAL) 89 %
[2019-01-05] MEDS ORDERED: ONDANSETRON 4 MG/2 ML (SDV) Z0FRAN IV PRN (05:00)
[2019-01-05] MEDS ORDERED: KETOROLAC 15 MG/ML VIAL IV PRN (05:00)
[2019-01-05] MEDS ORDERED: ACETAMINOPHEN 500 MG TAB (TYLENOL) PO PRN (05:00)
[2019-01-05] MEDS: NS W/KCL 20 MEQ/L 1,000 ML IV SCH ×2 (05:11→17:06)
[2019-01-05] MEDS ORDERED: CEFEPIME 2,000 MG/SWFI 20 ML IV PUSH IV SCH ×2 (05:15)
[2019-01-05] MEDS ORDERED: RT-ALBUTEROL/IPRATROPIUM 3 ML (DUONEB) VIAL INH PRN (05:15)
--- NOTE | 2019-01-05 06:12 | Pulmonary Consultation ---
History of Present Illness History of Present Illness Date of Consultation 01/05/19 06:07 Date of Admission Allergies and Home Medications Allergies Coded Allergies: levofloxacin (Verified Allergy, Unknown, 02/02/17) Home Medications Furosemide 40 Mg Tablet, 40 MG PO DAILY, (Reported) LAST FILLED 12/13/16 #30 Losartan Potassium 25 Mg Tablet, 25 MG PO DAILY Prescribed by: EVITA DIAS on 02/16/17 1436 Metoprolol Tartrate 25 Mg Tablet, 25 MG PO BID Prescribed by: EVITA DIAS on 02/16/17 1436 Prednisone 10 Mg Tab.ds.pk, 10 MG PO DAILY Take 6 tabs(60mg)daily,decrease by 1 tab(10MG)daily. Prescribed by: EVITA DIAS on 02/16/17 1436 Past Yhpfeew-Tgddbs-Zqmqtc Hx Patient Social History Alcohol Use: Occasionally Uses Alcohol Beverage of Choice: Beer Recreational Drug Use: No Smoking Status: Never a Smoker 2nd Hand Smoke Exposure: No Recent Foreign Travel: No Contact w/Someone Who Travel: No Recent Infectious Disease Expo: No Recent Hopitalizations: Yes (october- sepsis pneumonia/chf) Immunizations Up To Date Tetanus Booster (TDap): Less than 5yrs PED Vaccines UTD: Yes Date of Pneumonia Vaccine: Jan 12, 2015 Date of Influenza Vaccine: Feb 07, 2017 Seasonal Allergies Seasonal Allergies: No Past Medical History Surgeries: Yes (cleft palate, trach) Abdominal, Testicular, Tracheostomy Respiratory: Yes (TRACHEOSTOMY) Sleep Apnea Currently Using CPAP: Yes Cardiac: Yes (CHF, EF 40-45%, CARDIAC ARREST (2002)) Cardiomyopathy Neurological: Yes (MUSCULAR DYSTROPHY) Genitourinary: No Gastrointestinal: No Musculoskeletal: No Endocrine: Yes HEENT: Yes (CLEFT PALATE/LIP, TRACHEOSTOMY) Cancer: No Psychosocial: No Integumentary: No Blood Disorders: No Adverse Reaction/Blood Tranf: No Family Medical History No Pertinent Family Hx Sepsis Event Evaluation Height, Weight, BMI Height: 5'7.00" Weight: 104lbs. 8.0oz. 47.248272sf; 20.02 BMI Method:Stated Exam Exam Vital Signs Date Time Temp Pulse Resp B/P (MAP) Pulse Ox O2 Delivery O2 Flow Rate FiO2 01/05/19 05:29 36.4 68 19 118/67 94 NIV CPAP 2.00 01/05/19 05:24 97 NIV CPAP 2.00 01/05/19 04:49 78 94 01/05/19 04:42 125 01/05/19 00:37 98 OxyMask 10.00 01/05/19 00:17 36.7 79 20 158/91 (113) 98 OxyMask 10.00 Height & Weight Height: 5'7.00" Weight: 104lbs. 8.0oz. 47.754227fh; 20.02 BMI Method:Stated Capillary Refill: Less Than 3 Seconds Peripheral Pulses: 2+ Dorsalis Pedis (R), 2+ Left Dors-Pedis (L), 2+ Radial Pulses (R), 2+ Radial Pulses (L) Gastrointestinal: normal bowel sounds, soft, no organomegaly, tenderness (epigastric) Results Lab Laboratory Tests 01/05/19 00:37 Assessment/Plan Assessment/Plan Chronic tracheostomy r/o PNA -Check sputum C&S -Check MRSA nasal swab -Add Vanco to Cefepime and await cultures -Pt uses home vent to trach Q night -Pt is very compliant UTI -Continue Cefepime for now -Await espinoza cultures ANNI CARBAJAL DO Jan 05, 2019 06:12
[2019-01-05] MEDS ORDERED: PHARMACY TO DOSE IV SCH (06:15)
[2019-01-05 06:32] LABS: WHITE BLOOD COUNT 11.7 10^3/uL (4.3-11.0)
[2019-01-05 06:33] LABS: BASOPHILS % (AUTO) 0 % (0-10); EOSINOPHILS % (AUTO) 0 % (0-10); HEMATOCRIT 45 % (40-54); HEMOGLOBIN 13.9 G/DL (13.3-17.7); LYMPHOCYTES # (AUTO) 1.7 X 10^3 (1.0-4.0); LYMPHOCYTES % (AUTO) 14 % (12-44); MEAN CORPUSCULAR HEMOGLOBIN 30 PG (25-34); MEAN CORPUSCULAR HGB CONC 31 G/DL (32-36); MEAN CORPUSCULAR VOLUME 96 FL (80-99); MEAN PLATELET VOLUME 9.6 FL (7.4-10.4); MONOCYTES # (AUTO) 0.8 X 10^3 (0.0-1.0); MONOCYTES % (AUTO) 6 % (0-12); NEUTROPHILS # (AUTO) 9.2 X 10^3 (1.8-7.8); NEUTROPHILS % (AUTO) 79 % (42-75); PLATELET COUNT 258 10^3/uL (130-400); RED CELL DISTRIBUTION WIDTH 13.8 % (10.0-14.5)
[2019-01-05 06:52] LABS: BUN/CREATININE RATIO 15; CALCIUM 8.8 MG/DL (8.5-10.1); CARBON DIOXIDE 32 MMOL/L (21-32); CHLORIDE 103 MMOL/L (98-107); CREATININE SERUM 0.46 MG/DL (0.60-1.30); GFR ESTIMATED > 60; GLUCOSE 87 MG/DL (70-105); MAGNESIUM 1.9 MG/DL (1.6-2.4); PHOSPHORUS 3.7 MG/DL (2.3-4.7); POTASSIUM 4.1 MMOL/L (3.6-5.0); SODIUM 142 MMOL/L (135-145)
[2019-01-05] MEDS ORDERED: VANCOMYCIN 1250 MG/NS 250 ML IVPB IV NR ×2 (07:30)
[2019-01-05] MEDS: RT-ALBUTEROL/IPRATROPIUM 3 ML (DUONEB) VIAL INH SCH ×4 (07:50→18:34)
--- NOTE | 2019-01-05 08:06 | Diagnostic Imaging Report ---
INDICATION: Chest and abdominal pain. COMPARISON: 04/18/2017. DISCUSSION: Single portable upright view of the chest was obtained. Tracheostomy appliance is stable. Pulmonary hyperinflation is stable. Cardiomegaly is new. Interstitial infiltrates within the lung bases are nonspecific and could be seen with edema or pneumonia. No pleural fluid or pneumothorax. No osseous abnormality. IMPRESSION: 1. Cardiomegaly with bibasilar infiltrates. Dictated by: Dictated on workstation # [id number]
--- NOTE | 2019-01-05 08:10 | NUR ---
VANCOMYCIN DOSING SCR 0.46; CRCL >120; BOLUS VANC 20 MG/KG X 58 KG ~ 1250 MG THEN VANC 15 MG/KG ~ 1 GM Q12H CHECK TROUGH LEVEL 01/06 AT 2000 HOLD DOSE AND CONTACT PHARMACY IF LEVEL IS GREATER THAN 20 OR LESS THAN 10 Addendum: 01/05/19 at 0812 by JESUS URIAS [facility] TROUGH TIME IS 1900
--- NOTE | 2019-01-05 09:00 | NUR ---
Report called to Rosi REDDY.
--- NOTE | 2019-01-05 09:20 | NUR ---
PT TO ROOM 423 AT THIS TIME. ASSESSMENT COMPLETED. PT INTRODUCED TO CALL LIGHT AND SURROUNDINGS AT THIS TIME AND PT ABLE TO DEMONSTRATE USE OF CALL LIGHT AT THIS TIME. PT DENIES ANY NEEDS AT THIS TIME. PT HAS 6.0 SHILEY TRACH IN WITH EXTRA TRACH AT BEDSIDE FROM HOME. PT HOME TRILOGY UNIT ALSO AT BEDSIDE AT THIS TIME. NO S/S OF DISTRESS NOTED. PT IN ROOM.
--- NOTE | 2019-01-05 13:55 | History & Physical-Hospitalist ---
History of Present Illness HPI/Chief Complaint Pt is a 43yoCM with a PMH of muscular dystrophy and trach dependent who presented to the ER with a CC of abdominal pain. History is somewhat limited as he just hooked himself back up to the trach but he is able to answer yes and no questions and his is at bedside. he reports his pain is intermittent and has now completely resolved. Workup in the ER revealed both pneumonia and a urinary tract infection. ABG revealed CO2 retention and he was admitted. This morning he states he is feeling well. He denies any cough or fever. Source: patient Date Seen 01/05/19 Time Seen by a Provider: 13:51 Attending Physician Yajaira Morrow MD PCP Timmy Pavon MD Referring Physician Date of Admission Jan 05, 2019 at 02:30 Home Medications & Allergies Home Medications Reviewed patient Home Medication Reconciliation performed by pharmacy medication reconciliations field technician and/or nursing. Patients Allergies have been reviewed. Allergies Allergies Coded Allergies levofloxacin (Verified Allergy, Unknown, 02/02/17) Past Vzdcqdk-Lsdjbb-Dboqua Hx Past Med/Social Hx: Reviewed Nursing Past Med/Soc Hx Patient Social History Marrital Status: Employed/Student: employed Alcohol Use: Occasionally Uses Alcohol Beverage of Choice: Beer Recreational Drug Use: No Smoking Status: Never a Smoker 2nd Hand Smoke Exposure: No Recent Foreign Travel: No Contact w/other who traveled: No Recent Hopitalizations: Yes (january 2017- sepsis pneumonia/chf) Recent Infectious Disease Expo: No Immunizations Up To Date Tetanus Booster (TDap): Less than 5yrs Pediatric: Yes Date of Pneumonia Vaccine: Jan 12, 2015 Date of Influenza Vaccine: Feb 07, 2017 Seasonal Allergies Seasonal Allergies: No Past Medical History Surgeries: Abdominal, Testicular, Tracheostomy Currently Using CPAP: Yes Cardiac: Cardiomyopathy History of Blood Disorders: No Adverse Reaction to Blood Nelson: No Family History Reviewed Nursing Family Hx No Pertinent Family Hx Review of Systems Constitutional: No chills, No fever EENTM: no symptoms reported Respiratory: No cough, No dyspnea on exertion, No short of breath Cardiovascular: No chest pain Gastrointestinal: abdominal pain; No loss of appetite, No nausea, No vomiting Genitourinary: no symptoms reported Musculoskeletal: no symptoms reported Skin: no symptoms reported Psychiatric/Neurological: No Symptoms Reported Physical Exam Physical Exam Vital Signs Vital Signs - First Documented 01/05/19 00:17 Temp 36.7 Pulse 79 Resp 20 B/P (MAP) 158/91 (113) Pulse Ox 98 O2 Delivery OxyMask O2 Flow Rate 10.00 Capillary Refill : Less Than 3 Seconds Height, Weight, BMI Height: 5'7.00" Weight: 104lbs. 8.0oz. 47.448488xi; 20.02 BMI Method:Stated General Appearance: No Apparent Distress, Chronically ill, Thin HEENT: Moist Mucous Membranes; No Scleral Icterus (L), No Scleral Icterus (R) Neck: Full Range of Motion, Other (limited by large lynch, trach present) Respiratory: Lungs Clear, No Accessory Muscle Use, Other (on vent) Cardiovascular: Regular Rate, Rhythm, No Murmur Gastrointestinal: Normal Bowel Sounds, Non Tender, Soft Extremity: No Calf Tenderness, No Pedal Edema Neurologic/Psychiatric: Alert, Oriented x3, Normal Mood/Affect Skin: Normal Color, Warm/Dry Results Results/Procedures Labs Laboratory Tests 01/05/19 00:37 01/05/19 06:25 Patient resulted labs reviewed. Imaging: Reviewed Imaging Report Assessment/Plan Admission Diagnosis CAP Admission Status: Observation Assessment and Plan CAP CXR reveals bibasilar infiltrates Continue abx Await cultures Dr Hugo, consulted appreciate recs Not sepsis UTI Await c/s Continue abx Muscular dystrophy Wheelchair dependent Trach present Continue home vent settings HTN BP well controlled, trend Abd pain Now resolved Tylenol prn Diagnosis/Problems Diagnosis/Problems (1) Pneumonia Status: Acute Qualifiers: Pneumonia type: due to unspecified organism Laterality: right Lung location: lower lobe of lung Qualified Codes: J18.1 - Lobar pneumonia, unspecified organism (2) Epigastric pain Status: Acute (3) Acute on chronic respiratory failure with hypoxia and hypercapnia Status: Acute (4) Muscular dystrophy, congenital Status: Chronic (5) Tracheostomy dependent Status: Chronic Clinical Quality Measures DVT/VTE Risk/Contraindication: Risk Factor Score Per Nursin RFS Level Per Nursing on Admit: 1=Low/No VTE PPX YAJAIRA MORROW MD Jan 05, 2019 13:55
[2019-01-05] MEDS ORDERED: WATER (STERILE) FOR INJECTION 20 ML ONE (17:00)
[2019-01-05] MEDS ORDERED: CEFEPIME 2 GM (MAXIPIME) VIAL ONE (17:00)
[2019-01-05] MEDS: CEFEPIME 2,000 MG/SWFI 20 ML IV PUSH IV SCH ×2 (17:05)
[2019-01-05] MEDS: VANCOMYCIN 1 GM/NS 250 ML IVPB IV SCH ×2 (19:48)
[2019-01-06 04:00] VITALS: BP 104/62
[2019-01-06] MEDS: CEFEPIME 2,000 MG/SWFI 20 ML IV PUSH IV SCH ×2 (05:54)
[2019-01-06 06:04] LABS: BASOPHILS % (AUTO) 0 % (0-10); EOSINOPHILS # (AUTO) 0.1 10^3/uL (0.0-0.3); EOSINOPHILS % (AUTO) 1 % (0-10); HEMATOCRIT 42 % (40-54); LYMPHOCYTES # (AUTO) 1.7 X 10^3 (1.0-4.0); LYMPHOCYTES % (AUTO) 22 % (12-44); MEAN CORPUSCULAR HEMOGLOBIN 30 PG (25-34); MEAN CORPUSCULAR HGB CONC 31 G/DL (32-36); MEAN CORPUSCULAR VOLUME 98 FL (80-99); MEAN PLATELET VOLUME 9.7 FL (7.4-10.4); MONOCYTES # (AUTO) 0.8 X 10^3 (0.0-1.0); MONOCYTES % (AUTO) 10 % (0-12); NEUTROPHILS # (AUTO) 5.1 X 10^3 (1.8-7.8); NEUTROPHILS % (AUTO) 67 % (42-75); PLATELET COUNT 279 10^3/uL (130-400); RED CELL DISTRIBUTION WIDTH 14.2 % (10.0-14.5); WHITE BLOOD COUNT 7.7 10^3/uL (4.3-11.0)
[2019-01-06 06:32] LABS: ALANINE AMINOTRANSFERASE 34 U/L (0-55); ALBUMIN 3.3 GM/DL (3.2-4.5); ALKALINE PHOSPHATASE 64 U/L (40-136); BILIRUBIN,TOTAL 0.4 MG/DL (0.1-1.0); BUN/CREATININE RATIO 11; CALCIUM 8.4 MG/DL (8.5-10.1); CARBON DIOXIDE 28 MMOL/L (21-32); CHLORIDE 107 MMOL/L (98-107); CREATININE SERUM 0.44 MG/DL (0.60-1.30); GFR ESTIMATED > 60; GLUCOSE 84 MG/DL (70-105); POTASSIUM 4.3 MMOL/L (3.6-5.0); SODIUM 143 MMOL/L (135-145); TOTAL PROTEIN 6.2 GM/DL (6.4-8.2)
[2019-01-06] MEDS: RT-ALBUTEROL/IPRATROPIUM 3 ML (DUONEB) VIAL INH SCH ×2 (06:43→10:54)
--- NOTE | 2019-01-06 07:44 | Pulmonary Progress Note ---
Subjective Time Seen by a Provider: 08:25 Subjective/Events-last exam Pt is ok from pulmonary standpoint for discharge. He is feeling much improved. No productive cough. No worsening SOB. Sepsis Event Evaluation Height, Weight, BMI Height: 5'7.00" Weight: 104lbs. 8.0oz. 47.570387ga; 20.02 BMI Method:Stated Focused Exam Lactate Level 01/05/19 06:25: Lactic Acid Level 1.16 Exam Exam Vital Signs Date Time Temp Pulse Resp B/P (MAP) Pulse Ox O2 Delivery O2 Flow Rate FiO2 01/06/19 06:45 97 NIV Bilevel 2.00 01/06/19 04:00 36.8 78 18 104/62 (76) 96 Trach Collar 2.00 01/05/19 23:40 37.0 72 16 95/58 (70) 95 Trach Collar 2.00 01/05/19 23:20 37.0 72 16 95/58 (70) 95 Trach Collar 2.00 01/05/19 20:59 36.3 94 22 105/64 (78) 91 Trach Collar 2.00 01/05/19 20:43 Room Air 01/05/19 18:34 93 Room Air 2.00 01/05/19 16:18 36.9 78 20 107/69 (82) 98 Trach Collar 2.00 01/05/19 16:12 95 NIV Bilevel 2.00 01/05/19 11:49 98 Nasal Cannula 2.00 01/05/19 11:32 36.8 80 20 114/72 (86) 98 Trach Collar 2.00 01/05/19 09:29 37.6 86 20 123/55 (77) 98 Trach Collar 2.00 01/05/19 09:20 Nasal Cannula 2.00 01/05/19 09:00 95 Nasal Cannula 2.00 01/05/19 08:00 95 Nasal Cannula 2.00 01/05/19 08:00 35.1 84 16 112/68 (83) 97 NIV CPAP 2.00 01/05/19 07:59 96 NIV Bilevel 2.00 I & O 01/06/19 07:00 Intake Total 2385 ml Output Total 500 ml Balance 1885 ml Height & Weight Height: 5'7.00" Weight: 104lbs. 8.0oz. 47.504380zy; 20.02 BMI Method:Stated General Appearance: No Apparent Distress, Chronically ill, Thin HEENT: Moist Mucous Membranes; No Scleral Icterus (L), No Scleral Icterus (R) Neck: Full Range of Motion Respiratory: Lungs Clear, No Accessory Muscle Use Cardiovascular: Regular Rate, Rhythm, No Murmur Capillary Refill: Less Than 3 Seconds Peripheral Pulses: 2+ Dorsalis Pedis (R), 2+ Left Dors-Pedis (L), 2+ Radial Pulses (R), 2+ Radial Pulses (L) Gastrointestinal: normal bowel sounds, soft, no organomegaly, tenderness (epigastric) Extremity: No Calf Tenderness, No Pedal Edema Neurologic/Psychiatric: Alert, Oriented x3, Normal Mood/Affect Skin: Normal Color, Warm/Dry Results Lab Laboratory Tests 01/05/19 00:37 01/05/19 06:25 01/06/19 05:39 01/06/19 05:50 Assessment/Plan Assessment/Plan Chronic tracheostomy - doubt PNA -Check sputum C&S -Check MRSA nasal swab -Pt uses home vent to trach Q night -Pt is very compliant UTI -vanco, Cefepime -Await espinoza cultures ANNI CARBAJAL DO Jan 06, 2019 07:44
[2019-01-06 08:00] VITALS: BP 119/80
[2019-01-06] MEDS: VANCOMYCIN 1 GM/NS 250 ML IVPB IV SCH ×2 (08:23)
--- NOTE | 2019-01-06 08:44 | Discharge Summary ---
Discharge Summary Hospital Course Was the Problem List Reviewed?: Yes Problems/Dx: (1) Pneumonia Status: Acute Qualifiers: Qualified Codes: J18.1 - Lobar pneumonia, unspecified organism (2) Epigastric pain Status: Resolved (3) Acute on chronic respiratory failure with hypoxia and hypercapnia Status: Acute (4) Muscular dystrophy, congenital Status: Chronic (5) Tracheostomy dependent Status: Chronic (6) UTI (urinary tract infection) Qualifiers: Qualified Codes: N30.00 - Acute cystitis without hematuria Hospital Course Date of Admission: Jan 05, 2019 at 02:30 Admission Diagnosis : Family Physician/Provider: Timmy Clements MD Date of Discharge: 01/06/19 Discharge Diagnosis: [Pneumonia acute on chronic respiratory failure with hypoxia, hypercapnea- resolved urinary tract infection muscular dystrophy abdominal pain- suprapubic] Hospital Course: 43 yo M admitted for respiratory failure and a urinary tract infection. He improved significantly with IVF, antibiotics and respiratory support. Labs improved and were reviewed through his stay with WBC returning to normal. He was discharged on 01/06/19 with resolution of his abdominal pain and improv ement in his respiratory status- Oxygen saturation improved significantly. Dr. Hugo was consulted for pulmonology given patient has a tracheostomy. Angel did not stay 2 midnights as originally expected on admission as it appears his urinary tract infection was playing a bigger role in his overall illness than initially expected. He did recover quickly with above measure of hydration, antibiotics and respiratory support. Also with his underlying muscular dystrophy he could decompensate fast. Labs and Pending Lab Test: Laboratory Tests 01/05/19 13:03: Troponin I < 0.028 01/06/19 05:39: Sodium Level 143, Potassium Level 4.3, Chloride Level 107, Carbon Dioxide Level 28, Anion Gap 8, Blood Urea Nitrogen 5L, Creatinine 0.44L, Estimat Glomerular Filtration Rate > 60, BUN/Creatinine Ratio 11, Glucose Level 84, Calcium Level 8.4L, Corrected Calcium 9.0, Total Bilirubin 0.4, Aspartate Amino Transf (AST/SGOT) 36H, Alanine Aminotransferase (ALT/SGPT) 34, Alkaline Phosphatase 64, Total Protein 6.2L, Albumin 3.3 01/06/19 05:50: White Blood Count 7.7, Red Blood Count 4.30L, Hemoglobin 13.0L, Hematocrit 42, Mean Corpuscular Volume 98, Mean Corpuscular Hemoglobin 30, Mean Corpuscular Hemoglobin Concent 31L, Red Cell Distribution Width 14.2, Platelet Count 279, Mean Platelet Volume 9.7, Neutrophils (%) (Auto) 67, Lymphocytes (%) (Auto) 22, Monocytes (%) (Auto) 10, Eosinophils (%) (Auto) 1, Basophils (%) (Auto) 0, Neutrophils # (Auto) 5.1, Lymphocytes # (Auto) 1.7, Monocytes # (Auto) 0.8, Eosinophils # (Auto) 0.1, Basophils # (Auto) 0.0 Home Meds Active Prednisone 10 Mg Tab.ds.pk 10 Mg PO DAILY Take 6 tabs(60mg)daily,decrease by 1 tab(10MG)daily. Losartan Potassium 25 Mg Tablet 25 Mg PO DAILY Metoprolol Tartrate 25 Mg Tablet 25 Mg PO BID Reported Furosemide 40 Mg Tablet 40 Mg PO DAILY LAST FILLED 12/13/16 #30 Assessment/Pt Instructions Follow up with Dr. Hugo in 1-2 weeks Follow up with M- Dr. Timmy Clemenst in 1-2 weeks. Discharge Planning: <30 minutes discharge planning Discharge Instructions Discharge Diet: Regular Diet Activity as Tolerated: Yes Discharge Physical Examination Vital Signs Vital Signs Date Time Temp Pulse Resp B/P (MAP) Pulse Ox O2 Delivery O2 Flow Rate FiO2 01/06/19 06:45 97 NIV Bilevel 2.00 01/06/19 04:00 36.8 78 18 104/62 (76) General Appearance: No Apparent Distress, WD/WN HEENT: PERRL/EOMI Respiratory: Chest Non Tender, Lungs Clear, Normal Breath Sounds, No Accessory Muscle Use, No Respiratory Distress Cardiovascular: Regular Rate, Rhythm, No Edema Gastrointestinal: Normal Bowel Sounds, Non Tender, Soft Extremity: No Calf Tenderness Skin: Normal Color, Warm/Dry Neurologic/Psychiatric: Alert, Oriented x3, Normal Mood/Affect Allergies: Coded Allergies: levofloxacin (Verified Allergy, Unknown, 02/02/17) Discharge Summary Date of Admission Jan 05, 2019 at 02:30 Date of Discharge January 06, 2019 Admission Diagnosis CAP Consults/Procedures Consulations Dr. Hugo Discharge Diagnosis (1) Pneumonia Status: Acute Qualifiers: Qualified Codes: J18.1 - Lobar pneumonia, unspecified organism (2) Epigastric pain Status: Resolved (3) Acute on chronic respiratory failure with hypoxia and hypercapnia Status: Acute (4) Muscular dystrophy, congenital Status: Chronic (5) Tracheostomy dependent Status: Chronic (6) UTI (urinary tract infection) Qualifiers: Qualified Codes: N30.00 - Acute cystitis without hematuria Clinical Quality Measures DVT/VTE Risk/Contraindication: Risk Factor Score Per Nursin RFS Level Per Nursing on Admit: 1=Low/No VTE PPX TIMMY CLEMENTS MD Jan 06, 2019 08:38
[2019-01-06] MEDS ORDERED: CEFD300C3 PO (08:51)
--- NOTE | 2019-01-06 10:15 | Diagnostic Imaging Report ---
PA and lateral chest at 937 hours. INDICATION: Pneumonia. FINDINGS: The cardiomegaly and bibasilar alveolar/interstitial pulmonary infiltrates seen on the prior exam of 01/05/2019 are again evident. Allowing for differences in film technique, there does not seem to have been any significant change since the prior exam. However, small bilateral pleural effusions have developed since the previous study. The mediastinum is not widened. The osseous structures are intact. The tracheostomy tube seen previously is again evident and no different. IMPRESSION: There are persistent alveolar/interstitial pulmonary infiltrates in both lungs. Small bilateral pleural effusions have also developed since the prior study. A followup exam would be recommended for continued evaluation. Dictated by: Dictated on workstation # [id number]
[2019-01-06 12:00] VITALS: BP 119/80
--- NOTE | 2019-01-06 12:00 | NUR ---
ARSEN HAYDEN demonstrates understanding of discharge instructions and accurately returns instructions upon questioning. Copy of Post-Discharge Instructions given to PT. ARSEN HAYDEN is able to manage continuing needs after discharge. Patients belongings returned to PT. Patient discharged from [facility] on 01/06/19 at 1200. ARSEN HAYDEN left floor via W/C, accompanied by STAFF AND PER AUTO.
[2019-01-06] MEDS ORDERED: TROUGH ORDER-PHARMACY XX NR (19:00)
== END 2019-01-06 12:00 | disposition home or self-care (01) | DRG 193 ==
LOC: EDUNIT# 23:53 → ER 23:54 → ICU 01-05 02:30 → 4TH 01-05 09:26
PROVIDERS: ADMIT Family Medicine; ATTEND Family Medicine
DX: J18.1 Lobar pneumonia, unspecified organism (principal); J96.22 Acute and chronic respiratory failure with hypercapnia; J96.21 Acute and chronic respiratory failure with hypoxia; N39.0 Urinary tract infection, site not specified; G35 Multiple sclerosis; G47.30 Sleep apnea, unspecified; Z93.0 Tracheostomy status; I42.9 Cardiomyopathy, unspecified; I50.9 Heart failure, unspecified; Z99.3 Dependence on wheelchair
CPT/HCPCS: 36415; 36600; 71045; 71046; 80048; 80053; 81000; 82805; 83605; 83690; 83735; 83880; 84100; 84484; 85007; 85025; 85027; 86141; 87081; 87088; 93005; 94640; 96361; 96374; 96375

== ENCOUNTER 2019-02-09 08:12 | Emergency (ER) | payer BC ==
[~2019-02-09] VITALS: Ht 170 cm; Wt 61.0 kg
[~2019-02-09 08:12] MED LIST changes: +CEFD300C3 PO
[2019-02-09] MEDS ORDERED: ANTACID SUSP 30 ML UDC (MYLANTA) PO ONE (09:30)
[2019-02-09] MEDS ORDERED: LIDOCAINE 2% VISCOUS 15 ML UDC PO ONE (09:30)
[2019-02-09 09:31] LABS: BASOPHILS % (AUTO) 0 % (0-10); EOSINOPHILS % (AUTO) 0 % (0-10); HEMATOCRIT 49 % (40-54); HEMOGLOBIN 16.1 G/DL (13.3-17.7); LYMPHOCYTES # (AUTO) 1.7 X 10^3 (1.0-4.0); LYMPHOCYTES % (AUTO) 17 % (12-44); MEAN CORPUSCULAR HEMOGLOBIN 30 PG (25-34); MEAN CORPUSCULAR HGB CONC 33 G/DL (32-36); MEAN CORPUSCULAR VOLUME 92 FL (80-99); MEAN PLATELET VOLUME 9.5 FL (7.4-10.4); MONOCYTES % (AUTO) 10 % (0-12); NEUTROPHILS % (AUTO) 72 % (42-75); PLATELET COUNT 294 10^3/uL (130-400); RED CELL DISTRIBUTION WIDTH 13.5 % (10.0-14.5); WHITE BLOOD COUNT 9.7 10^3/uL (4.3-11.0)
[2019-02-09 09:46] LABS: ALANINE AMINOTRANSFERASE 36 U/L (0-55); ALBUMIN 4.4 GM/DL (3.2-4.5); ALKALINE PHOSPHATASE 77 U/L (40-136); BILIRUBIN,TOTAL 0.4 MG/DL (0.1-1.0); BUN/CREATININE RATIO 20; CALCIUM 10.3 MG/DL (8.5-10.1); CARBON DIOXIDE 30 MMOL/L (21-32); CHLORIDE 97 MMOL/L (98-107); CREATININE SERUM 0.55 MG/DL (0.60-1.30); GFR ESTIMATED > 60; GLUCOSE 104 MG/DL (70-105); LIPASE 33 U/L (8-78); POTASSIUM 4.6 MMOL/L (3.6-5.0); SODIUM 139 MMOL/L (135-145); TOTAL PROTEIN 7.7 GM/DL (6.4-8.2)
--- NOTE | 2019-02-09 10:25 | Diagnostic Imaging Report ---
PROCEDURE: CT abdomen and pelvis without contrast. TECHNIQUE: Multiple contiguous axial images were obtained through the abdomen and pelvis without the use of intravenous contrast. Auto Exposure Controls were utilized during the CT exam to meet ALARA standards for radiation dose reduction. INDICATION: Upper and lower abdominal pain, right lower quadrant. Onset 3 weeks ago. Not improving. EXAMINATION: CT abdomen and pelvis without contrast 02/09/2019. COMPARISON: None. FINDINGS: Bilateral nonobstructive renal stones noted. Vague hypodensities in both kidneys also seen and too small to characterize. There is no hydronephrosis. No ureteral stones on either side. The gallbladder is distended. It contains a likely stone. No surrounding inflammation appreciated. The liver, spleen, adrenal glands and pancreas are unremarkable on this noncontrast examination. There is diverticular disease without evidence for acute diverticulitis. No free fluid or air in the abdomen or pelvis. No focal inflammatory process about the bowel loops. There is marked degenerative disease within the osseous structures. An acute osseous abnormality is not seen. Visualized lungs demonstrate chronic changes. Visualized osseous structures also demonstrate chronic change with no acute abnormality. IMPRESSION: 1. Bilateral nephrolithiasis nonobstructive in nature. No hydronephrosis or ureteral stones. 2. Abnormal appearance to the gallbladder which is distended and contains at least one large stone. If there is right upper quadrant pain, sonography recommended. Other incidental findings as discussed above. Dictated by: Dictated on workstation # [id number]
[2019-02-09 10:44] LABS: BILIRUBIN,URINE NEGATIVE (NEGATIVE); CLARITY,URINE CLEAR; COLOR,URINE YELLOW; GLUCOSE, URINE (UA) NEGATIVE (NEGATIVE); KETONES,URINE 2+ (NEGATIVE); LEUKOCYTE ESTERASE ,URINE 1+ (NEGATIVE); NITRITE,URINE NEGATIVE (NEGATIVE); PH,URINE 6 (5-9); PROTEIN,URINE 1+ (NEGATIVE)
[2019-02-09 10:55] LABS: BACTERIA,URINE NEGATIVE /HPF; RBC,URINE 0-2 /HPF
--- NOTE | 2019-02-09 11:59 | ED Abdominal Pain ---
General Chief Complaint: Abdominal/GI Problems Stated Complaint: STOMACH PAIN Nursing Triage Note: Patient reports abdomen pain. States has been on an antibiotic and his PCP told him to take pepto and famotidine, which has not helped. Sepsis Screen: No Definite Risk Source of Information: Patient, Family Exam Limitations: No Limitations History of Present Illness Date Seen by Provider: Feb 09, 2019 Time Seen by Provider: 11:54 Initial Comments This 43-year-old male presents with abdominal pain that has not improved with famotidine and Pepto-Bismol. Patient denies fever, chills, constipation or diarrhea, nausea or vomiting. Allergies and Home Medications Allergies Coded Allergies: levofloxacin (Verified Allergy, Unknown, 02/02/17) Home Medications Cefdinir 300 Mg Capsule, 300 MG PO BID Prescribed by: GLEN CLEMENTS on 01/06/19 0851 Furosemide 40 Mg Tablet, 40 MG PO DAILY, (Reported) LAST FILLED 12/13/16 #30 Losartan Potassium 25 Mg Tablet, 25 MG PO DAILY Prescribed by: EVITA DIAS on 02/16/17 1436 Metoprolol Tartrate 25 Mg Tablet, 25 MG PO BID Prescribed by: EVITA DIAS on 02/16/17 1436 Prednisone 10 Mg Tab.ds.pk, 10 MG PO DAILY Take 6 tabs(60mg)daily,decrease by 1 tab(10MG)daily. Prescribed by: EVITA DIAS on 02/16/17 1436 Patient Home Medication List Home Medication List Reviewed: Yes Review of Systems Review of Systems Constitutional: No chills, No fever EENTM: No Ear Pain Respiratory: Denies Cough Cardiovascular: Denies Chest Pain Gastrointestinal: See HPI; Denies Abdomen Distended; Abdominal Pain; Denies Nausea, Denies Vomiting Genitourinary: No Symptoms Reported Musculoskeletal: no symptoms reported Skin: no symptoms reported Psychiatric/Neurological: No Symptoms Reported Endocrine: No Symptoms Reported Hematologic/Lymphatic: No Symptoms Reported Past Tayucww-Dtkroy-Detojn Hx Past Med/Social Hx: Reviewed Nursing Past Med/Soc Hx Patient Social History Alcohol Use: Denies Use Number of Drinks Today: AA Alcohol Beverage of Choice: Beer Recreational Drug Use: No 2nd Hand Smoke Exposure: No Recent Foreign Travel: No Contact w/Someone Who Travel: No Recent Infectious Disease Expo: No Recent Hopitalizations: No Immunizations Up To Date Tetanus Booster (TDap): Less than 5yrs PED Vaccines UTD: Yes Date of Pneumonia Vaccine: Jan 12, 2015 Date of Influenza Vaccine: Jan 20, 2019 Seasonal Allergies Seasonal Allergies: No Past Medical History Surgeries: Yes (cleft palate, trach) Abdominal, Testicular, Tracheostomy Respiratory: Yes (TRACHEOSTOMY) Sleep Apnea Currently Using CPAP: Yes Cardiac: Yes (CHF, EF 40-45%, CARDIAC ARREST (2002)) Cardiomyopathy Neurological: Yes (MUSCULAR DYSTROPHY) Genitourinary: No Gastrointestinal: No Musculoskeletal: No Endocrine: Yes HEENT: Yes (CLEFT PALATE/LIP, TRACHEOSTOMY) Cancer: No Psychosocial: No Integumentary: No Blood Disorders: No Adverse Reaction/Blood Tranf: No Family Medical History No Pertinent Family Hx Physical Exam Vital Signs Vital Signs - First Documented 02/09/19 09:13 Temp 37.0 Pulse 79 Resp 18 B/P (MAP) 138/96 (110) Pulse Ox 96 Capillary Refill : Less Than 3 Seconds Height/Weight/BMI Height: 5'7.00" Weight: 104lbs. 8.0oz. [id number]; 21.00 BMI Method:Stated General Appearance: WD/WN, no apparent distress HEENT: normal ENT inspection Neck: other (tracheostomy) Respiratory: lungs clear Cardiovascular: regular rate, rhythm Gastrointestinal: normal bowel sounds, non tender, soft Extremities: normal range of motion, non-tender, normal inspection Back: normal inspection Neurologic/Psychiatric: no motor/sensory deficits, alert, normal mood/affect, oriented x 3 Progress/Results/Core Measures Results/Orders Lab Results Laboratory Tests Test 02/09/19 09:08 02/09/19 10:35 Range/Units White Blood Count 9.7 4.3-11.0 10^3/uL Red Blood Count 5.38 4.35-5.85 10^6/uL Hemoglobin 16.1 13.3-17.7 G/DL Hematocrit 49 40-54 % Mean Corpuscular Volume 92 80-99 FL Mean Corpuscular Hemoglobin 30 25-34 PG Mean Corpuscular Hemoglobin Concent 33 32-36 G/DL Red Cell Distribution Width 13.5 10.0-14.5 % Platelet Count 294 130-400 10^3/uL Mean Platelet Volume 9.5 7.4-10.4 FL Neutrophils (%) (Auto) 72 42-75 % Lymphocytes (%) (Auto) 17 12-44 % Monocytes (%) (Auto) 10 0-12 % Eosinophils (%) (Auto) 0 0-10 % Basophils (%) (Auto) 0 0-10 % Neutrophils # (Auto) 7.0 1.8-7.8 X 10^3 Lymphocytes # (Auto) 1.7 1.0-4.0 X 10^3 Monocytes # (Auto) 1.0 0.0-1.0 X 10^3 Eosinophils # (Auto) 0.0 0.0-0.3 10^3/uL Basophils # (Auto) 0.0 0.0-0.1 10^3/uL Sodium Level 139 135-145 MMOL/L Potassium Level 4.6 3.6-5.0 MMOL/L Chloride Level 97 L 98-107 MMOL/L Carbon Dioxide Level 30 21-32 MMOL/L Anion Gap 12 5-14 MMOL/L Blood Urea Nitrogen 11 7-18 MG/DL Creatinine 0.55 L 0.60-1.30 MG/DL Estimat Glomerular Filtration Rate > 60 BUN/Creatinine Ratio 20 Glucose Level 104 70-105 MG/DL Calcium Level 10.3 H 8.5-10.1 MG/DL Corrected Calcium 10.0 8.5-10.1 MG/DL Total Bilirubin 0.4 0.1-1.0 MG/DL Aspartate Amino Transf (AST/SGOT) 40 H 5-34 U/L Alanine Aminotransferase (ALT/SGPT) 36 0-55 U/L Alkaline Phosphatase 77 40-136 U/L Total Protein 7.7 6.4-8.2 GM/DL Albumin 4.4 3.2-4.5 GM/DL Lipase 33 8-78 U/L Urine Color YELLOW Urine Clarity CLEAR Urine pH 6 5-9 Urine Specific Neal 1.025 H 1.016-1.022 Urine Protein 1+ H NEGATIVE Urine Glucose (UA) NEGATIVE NEGATIVE Urine Ketones 2+ H NEGATIVE Urine Nitrite NEGATIVE NEGATIVE Urine Bilirubin NEGATIVE NEGATIVE Urine Urobilinogen NORMAL NORMAL MG/DL Urine Leukocyte Esterase 1+ H NEGATIVE Urine RBC (Auto) NEGATIVE NEGATIVE Urine RBC 0-2 /HPF Urine WBC 2-5 /HPF Urine Squamous Epithelial Cells 2-5 /HPF Urine Crystals NONE /LPF Urine Bacteria NEGATIVE /HPF Urine Casts NONE /LPF Urine Mucus SMALL H /LPF Urine Culture Indicated NO My Orders Orders - ТАТЬЯНА PRADHAN MD Cbc With Automated Diff (02/09/19 09:21) Comprehensive Metabolic Panel (02/09/19 09:21) Ua Culture If Indicated (02/09/19 09:21) Lipase (02/09/19 09:21) Ct Abdomen/Pelvis Wo (02/09/19 09:21) Lidocaine 2% Viscous 15 Ml (Xylocaine Vi (02/09/19 09:30) Antacid Suspension (Mylanta Suspension (02/09/19 09:30) Medications Given in ED Current Medications Medications Dose Ordered Sig/Yaneth Route Start Time Stop Time Status Last Admin Dose Admin Al Hydrox/Mg Hydrox/Simethicone 30 ml ONCE ONCE PO 02/09/19 09:30 02/09/19 09:31 DC 02/09/19 09:53 30 ML Lidocaine HCl 15 ml ONCE ONCE PO 02/09/19 09:30 02/09/19 09:31 DC 02/09/19 09:53 15 ML Vital Signs/I&O 02/09/19 09:13 Temp 37.0 Pulse 79 Resp 18 B/P (MAP) 138/96 (110) Pulse Ox 96 Blood Pressure Mean: 110 POS Progress Progress Note : Time: 11:56 Progress Note Patient's laboratory and radiographic evaluation demonstrated an enlarged gallbladder with a stone. Call was placed Dr. Torres who will see Mr. Naik in the office Sunday. Departure Impression Primary Impression: Cholecystitis Disposition: HOME, SELF-CARE Condition: Unchanged Departure-Patient Inst. Decision time for Depature: 11:58 Referrals: MIGUEL TORRES CHAD C MD (PCP/Family) Primary Care Physician Patient Instructions: Gallstones (DC) Add. Discharge Instructions: Call Dr. Torres tomorrow for close follow up. Come back if any problems. All discharge instructions reviewed with patient and/or family. Voiced understanding. Scripts Ondansetron (Ondansetron Odt) 4 Mg Tab.rapdis 4 MG PO Q4H for Pain, #10 TAB Prov: ТАТЬЯНА PRADHAN MD 02/09/19 Hydrocodone/Acetaminophen (Vicodin 5-300 mg Tablet) 1 Each Tablet 1-2 EACH PO Q6H PRN for PAIN-MODERATE MDD 10 for 7 Days, #20 TAB Prov: ТАТЬЯНА PRADHAN MD 02/09/19 ТАТЬЯНА PRADHAN MD Feb 09, 2019 11:59 POS
[2019-02-09] MEDS ORDERED: ONDA4TAB11 PO (12:00)
[2019-02-09] MEDS ORDERED: HYDR-3455 PO (12:00)
[2019-02-09 12:02] VITALS: BP 138/96
== END 2019-02-09 12:02 | disposition home or self-care (01) ==
LOC: EDUNIT# 08:12 → ER 08:14
DX: K81.9 Cholecystitis, unspecified (principal); I50.9 Heart failure, unspecified; G47.30 Sleep apnea, unspecified; Z99.89 Dependence on other enabling machines and devices; Z88.1 Allergy status to other antibiotic agents; Z93.0 Tracheostomy status
CPT/HCPCS: 36415; 74176; 80053; 81000; 83690; 85025

== ENCOUNTER 2019-02-11 10:15 | Outpatient (CLI) | payer BC ==
[~2019-02-11] VITALS: Ht 167 cm; Wt 60.9 kg
[~2019-02-11 10:15] MED LIST changes: +HYDR-3455 PO; +ONDA4TAB11 PO
[2019-02-11] MEDS ORDERED: IPRA0.2S51 IH (10:25)
[2019-02-11] MEDS ORDERED: BUDE1AMP2 IH (10:25)
[2019-02-11] MEDS ORDERED: ARFO15VI3 IH (10:25)
[2019-02-11 10:38] VITALS: BP 125/71
[2019-02-13] MEDS ORDERED: ACHD5005 PO (16:10)
== END 2019-02-11 15:30 | disposition home or self-care (01) ==
LOC: PREOP 10:15
PROVIDERS: ATTEND Surgery
DX: Z01.818 Encounter for other preprocedural examination (principal)
CPT/HCPCS: 87081

== ENCOUNTER 2019-02-13 10:55 | Day surgery (SDC) | payer BC ==
[2019-02-13] VITALS (14 sets, daily range): BP systolic 125–171; BP diastolic 62–99
[~2019-02-13] VITALS: Ht 167 cm; Wt 60.9 kg
[~2019-02-13 10:55] MED LIST changes: +ARFO15VI3 IH; +BUDE1AMP2 IH; +IPRA0.2S51 IH
[2019-02-13] MEDS ORDERED: LACTATED RINGERS 1,000 ML IV PRN (11:31)
[2019-02-13] MEDS ORDERED: ceFAZolin 2 GM IV Premixed 50 ML ONE (11:36)
[2019-02-13] MEDS ORDERED: ceFAZolin 2 GM IV Premixed 50 ML IV ONE (11:45)
--- NOTE | 2019-02-13 11:53 | Progress Note-Pre Operative ---
Pre-Operative Progress Note H&P Reviewed The H&P was reviewed, patient examined and no changes noted. Time Seen by Provider: 11:51 Date H&P Reviewed: Feb 13, 2019 Time H&P Reviewed: 15:20 Pre-Operative Diagnosis: Cholelithiasis/Cholecystitis MIGUEL TORRES DO Feb 13, 2019 11:53 POS
[2019-02-13] MEDS ORDERED: FAMOTIDINE 20MG/2ML IV (PEPCID) IV ONE (12:00)
[2019-02-13] MEDS ORDERED: ONDANSETRON 4 MG/2 ML (SDV) Z0FRAN IV ONE (12:00)
[2019-02-13] MEDS ORDERED: FAMOTIDINE 20MG/2ML IV (PEPCID) ONE (12:05)
[2019-02-13] MEDS ORDERED: ONDANSETRON 4 MG/2 ML (SDV) Z0FRAN ONE ×4 (12:05→17:09)
[2019-02-13] MEDS ORDERED: ROCURONIUM 10 MG/ML 5 ML SYRINGE IV ONE (12:47)
[2019-02-13] MEDS ORDERED: proPOfol 200 MG/20 ML (DIPRIVAN) VIAL IV ONE (12:47)
[2019-02-13] MEDS ORDERED: LIDOCAINE PF 2% 5 ML (XYLOCAINE) VIAL ONE (12:47)
[2019-02-13] MEDS ORDERED: MIDAZOLAM 2 MG/2 ML (VERSED) VIAL ONE (12:47)
[2019-02-13] MEDS ORDERED: NEOSTIGMINE 3 MG/3 ML VIAL ONE (12:47)
[2019-02-13] MEDS ORDERED: fentaNYL INJECTION 100 MCG/2 ML AMP ONE (12:47)
[2019-02-13] MEDS ORDERED: DEXAMETHASONE 10 MG/ML (DECADRON) 1 ML VIAL ONE (12:47)
[2019-02-13] MEDS ORDERED: SEVOFLURANE (ULTANE) 15 ML INHAL SOLN ONE ×6 (12:47→15:28)
[2019-02-13] MEDS ORDERED: GLYCOPYRROLATE 0.2 MG/ML (ROBINUL) 2 ML VIAL ONE (12:47)
[2019-02-13] MEDS ORDERED: IOPAMIDOL 61% 30 ML (ISOVUE 300) VIAL IV ONE (12:50)
[2019-02-13] MEDS ORDERED: BUP/EPI 0.5% 1:200,000 (SENSORCAINE) 30 ML VIAL ONE (12:50)
[2019-02-13] MEDS ORDERED: morphine INJ 10 MG/ML 1ML (SYR OR VIAL) IVP ONE (16:00)
[2019-02-13] MEDS ORDERED: morphine INJ 10 MG/ML 1ML (SYR OR VIAL) ONE (16:07)
[2019-02-13] MEDS: ONDANSETRON 4 MG/2 ML (SDV) Z0FRAN IVP PRN ×2 (16:08→17:13)
--- NOTE | 2019-02-13 16:09 | Progress Note-Post Operative ---
Post-Operative Progess Note Surgeon (s)/Keno Writer/Runner (s) Surgeon MIGUEL TORRES DO Keno Writer/Runner: vernon Pre-Operative Diagnosis Cholelithiasis/Cholecystitis Post-Operative Diagnosis same Procedure & Operative Findings Date of Procedure 02/13/19 Procedure Performed/Findings Lap linn with IOC Anesthesia Type GET Estimated Blood Loss Estimated blood loss (mL): less than 20ml Specimens/Packing Specimens Removed GB and contents MIGUEL TORRES DO Feb 13, 2019 16:09 POS
[2019-02-13] MEDS ORDERED: ACHD5005 PO (16:10)
--- NOTE | 2019-02-13 16:11 | Discharge Inst-Surgical ---
Discharge Inst-Surgical Depart Medication/Instructions New, Converted or Re-Newed RX: RX Given to Pt/Family Patient Instructions Follow up Appt: Make appointment for 1 week. [phone] Instructions: No lifting greater than 20 pounds. No strenuous activity. May shower in 24 hours, no tub bath or soaking. Use incentive spirometer at home as directed. No Smoking Skin/Wound Care: May remove bandages in am. You need to leave the Dermabond on incision it will fall off on it's own. Symptoms to Report: Appetite Changes, Extremity Discoloration, Numbness/Tingling, Swelling Increased, Bleeding Excessive, Eyesight Changes, Pain Increased, Urine Color Change, Constipation(Persistent), Fever over 101 degree F, Pain/Pressure in chest, Urinating Difficulty, Cough Up/Vomit Blood, Heart Beat Irreg/Pounding, Pain/Pressure in jaw, Cramps in feet or legs, Lightheadedness, Pain/Pressure in shoulder, Diarrhea(Persistent), Memory Changes Suddenly, Questions/Concerns, Weight gain consecutive days, Dizziness/Fainting, Nausea/Vomiting, Shortness of Breath, Weight gain over 2 pounds If questions or concerns contact your physician Or seek help at emergency department. Activity Activity as Tolerated: Yes Activity Instructions: Avoid Stress to Incision Driving Instructions: No Driving/Refer to Diet Discharge Diet: Avoid Fatty Foods, Low Fat/Low Cholesterol Diet After 24 Hours: Clear Liquid if Nauseous If Any Problems/Questions/Issu: Contact Your Physician, Go to Emergency Room Skin/Wound Care Infection Signs and Symptoms: Increased Redness, Foul Odor of Wound, Increased Drainage, Skin Itchy or Has a Rash, Increased Swelling, Temperature Above 101 F Wound Care Comment: HEMA drain teaching Bathing Instructions: Shower Stitches/[place]/Dermabond Dis: Dermabond MIGUEL TORRES DO Feb 13, 2019 16:11 POS
--- NOTE | 2019-02-13 16:31 | Anesthesia-General Post-Op ---
General Patient Condition Mental Status/LOC: Same as Preop Cardiovascular: Satisfactory Nausea/Vomiting: Absent Respiratory: Satisfactory Pain: Controlled Complications: Absent Post Op Complications Complications None Follow Up Care/Instructions Patient Instructions None needed. Anesthesia/Patient Condition Patient Condition Patient is doing well, no complaints, stable vital signs, no apparent adverse anesthesia problems. No complications reported per nursing. ZACH PHILLIPS CRNA Feb 13, 2019 16:30 POS
--- NOTE | 2019-02-13 16:54 | Diagnostic Imaging Report ---
EXAM: Fluoroscopy at 3:05 INDICATION: Abdominal pain Fluoroscopic assistance was provided for Dr. Myles. 26.0 seconds of fluoroscopy time was utilized. 60 spot films of the right upper quadrant were obtained. There are laparoscopic devices in place. There has been opacification of the common bile duct via a cystic duct catheter. The common bile duct may be slightly dilated. There is no defect within the duct to suggest retained calculus but the distal most portion of the duct was not well visualized. There is contrast extending into the small bowel and into the main pancreatic duct. IMPRESSION: Fluoroscopic assistance was provided for Dr. Myles. Dictated by: Dictated on workstation # [id number]
--- NOTE | 2019-02-13 17:15 | NUR ---
Patient arrived on the floor from [facility] at this time. Report received from BARRY Estevez. Patient is slighty drowsy but easy to arouse. Alert and oriented x3, LCTA, patient is on O2 at 2L via trach, pulses are strong, no edema noted, belly is distended but soft, 4 lapsites with a HEMA drain, draining serosanguinous fluid, dressings are dry and intact. no complaint of pain at this time, patient does c/o nausea. Zofran given per orders at this time. SCD's in place.
--- NOTE | 2019-02-13 17:29 | NUR ---
Vital signs T 37.1, BP 125/62, P 85, O2 98%, RR 17
[2019-02-13] MEDS ORDERED: HYDROcodone/APAP 5 MG/325 MG (LORTAB) TAB PO PRN (17:45)
--- NOTE | 2019-02-13 18:15 | NUR ---
Patient offered something to drink and refuses at this time. States "not yet".
--- NOTE | 2019-02-13 20:00 | NUR ---
REPORT RECEIVED FROM BARRY ULLOA. PT LAP SITES COVERED WITH BANDAIDES, C/D/I. HEMA DRAIN PRESENT. PT REPORTS 10/10 PAIN AT THIS TIME.
--- NOTE | 2019-02-13 21:35 | NUR ---
PT PAIN CONTROLLED WITH MEDICATION, ABLE TO TOLERATE DRINKING FLUIDS AND EATING SOME JELLO. PT ABLE TO URINATE. VOICES NO COMPLAINS. DISCHARGE PAPERS GIVEN TO PATIENT AND FAMILY, EDUCATION PROVIDED. THIS NURSE DEMONSTRATED TO PT AND FAMILY HOW TO EMPTY HEMA DRAIN, AND PROVIDED ADDITIONAL INFORMATION. PT AND FAMILY HAVE NO CONCERNS AT THIS TIME. IV REMOVED, CATHETER TIP INTACT. PT BELONGINGS RETURNED TO PATIENT. PT DISCHARGED, ACCOMPANIED BY FAMILY AND STAFF.
--- NOTE | 2019-02-14 21:04 | OPERATIVE REPORT ---
DATE OF SERVICE: 02/13/2019 PREOPERATIVE DIAGNOSES: Cholelithiasis, cholecystitis. POSTOPERATIVE DIAGNOSES: Cholelithiasis, cholecystitis, may have been gangrenous. PROCEDURE PERFORMED: Laparoscopic cholecystectomy with intraoperative cholangiogram. SURGEON: Bam Myles DO HOT KETTLE TENDER: Kenny Muniz DO ANESTHESIA: General endotracheal tube. SPECIMEN: Gallbladder and contents. BLOOD LOSS: Scant. FLUIDS: Per Anesthesia. POSTOPERATIVE CONDITION: Stable. INDICATION FOR PROCEDURE: The patient is a 43-year-old male who has been having abdominal pain for at least 2 weeks, diagnosed with stone in the gallbladder. FINDINGS: The patient had a very inflamed gallbladder that was thickened, tense and there were adhesions that were stuck directly to it. PROCEDURE NOTE: After informed consent was obtained, the patient was brought to the operating room, placed on the operating table in supine position, sterilely prepped and draped in normal fashion. Local lidocaine was used to infiltrate the skin above the umbilicus. I made the incision with #11 blade, carried down through the skin and subcutaneous tissue, then deepened down to subcutaneous tissue with Bovie electrocautery down to fascia. Fascia incised with Bovie electrocautery, bluntly entered the abdomen, swept a finger around and placed #0 Vicryl [id number] suture, then placed an 11 mm trocar port under direct visualization, created pneumoperitoneum and then placed 3 more ports in normal fashion using local lidocaine, 11-blade for stab incision and VersaStep system, all done under direct visualization. We had a lot of hard time getting pneumoperitoneum, actually had to switch out the machine once, it was very hard to see, had to peel omentum off of the gallbladder; which was very thickened and hard, had to actually make an opening to be able to grasp it, so opened with the Bovie electrocautery and suctioned out the fluid and then grasped with a grasper and took in superior direction and carefully started continuing to take down the adhesions. A blunt dissection with a [place] as well as the suction member service representative and then the [place] and some Bovie electrocautery, continued taking this down trying to get down to the cystic duct, encountered the cystic artery and got around to place one clip distally and one proximally and cut with Metzenbaum scissors. Continued peeling of all this inflammatory tissue, trying to get down to the cystic duct. At one point, it looked like we had made a small hole in the gallbladder to try to get a cholangiogram catheter through there, that did not work and then could see another opening and then placed a cholangiogram catheter down here and shot a cholangiogram and we got good spillage down the cystic duct into the common bile duct and down in small intestine as well as up into common hepatic and right and left hepatics. At this point, carefully pushed the gallbladder away from the cystic duct, placed an Endoloop into the abdomen and then grasped the cystic duct and then placed an Endoloop around the cystic duct and then continued moving the gallbladder up and then took the gallbladder off the bed of liver with L-hook cautery. Once this was completely removed, placed a bag in the abdomen, placed the gallbladder in the bag and then removed through supraumbilical incision. Because it was so inflamed, I elected to place a 19-American Robinson drain, pushed in through the supraumbilical port, grasped it and then pulled it out through the right lower quadrant incision, sutured this in place with 2-0 nylon and copiously irrigated and suctioned this out. There was no bleeding from the bed of liver and at this point then we placed the patient supine. He had been reverse Trendelenburg and rotated left and removed all ports under direct visualization, closed the supraumbilical incision, closed the fascia with #0 Vicryl suture previously placed. Copiously irrigated incisions and then closed the 2 small 5 mm incisions with single interrupted 4-0 undyed Monocryl subcuticular stitch, closed the supraumbilical incision with 3 interrupted 4-0 undyed Monocryl subcuticular stitch. Area was cleaned and dried. Dermabond placed as well as a drain sponge and the patient then transferred to recovery room in stable condition. Sponge, instrument and needle count correct at the end of the case. Dr. Muniz assisted in this case helping to make incisions, close incisions, identify anatomy, hold the anatomy out of the way. Job ID: [id number] DocumentID: [id number] Dictated Date: 02/14/2019 11:37:27 Line Patrolman Date: 02/14/2019 19:22:50 Dictated By: BAM MYLES, DO BARRIENTOS
== END 2019-02-13 21:35 | disposition home or self-care (01) ==
LOC: SDC 10:55 → 4TH 17:07 → SDC 21:35 → 4TH 02-14 07:38
PROVIDERS: ATTEND Surgery
DX: K80.12 Calculus of gallbladder with acute and chronic cholecystitis without obstruction (principal); J44.9 Chronic obstructive pulmonary disease, unspecified; G47.33 Obstructive sleep apnea (adult) (pediatric); G71.00 Muscular dystrophy, unspecified; I50.9 Heart failure, unspecified; I27.20 Pulmonary hypertension, unspecified; Z93.0 Tracheostomy status; Z87.01 Personal history of pneumonia (recurrent); Z87.440 Personal history of urinary (tract) infections; Z88.1 Allergy status to other antibiotic agents; Z79.899 Other long term (current) drug therapy
CPT/HCPCS: 88304

== ENCOUNTER → 2019-04-14 | Outpatient (CLI) | payer BC ==
[~2019-04-14] MED LIST changes: +ACHD5005 PO
--- NOTE | 2019-04-14 08:52 | Diagnostic Imaging Report ---
INDICATION: Pneumonia, follow-up. Time of exam: 8:44 AM Correlation is made with prior chest from 01/06/2019. Tracheostomy tube has tip above the leonor. Bilateral mixed interstitial and airspace infiltrates have improved since the prior exam. There is improved aeration in the perihilar regions bilaterally as well as in both lung bases. There may be minimal residual infiltrate in the lung bases. Bilateral effusions have resolved. There is no pneumothorax. Heart size normal. IMPRESSION: Improved appearance of the chest with significant clearing of bilateral infiltrates and effusions when compared with exam from 01/06/2019. Dictated by: Dictated on workstation # [id number]
== END ==
LOC: RAD 08:26
PROVIDERS: ATTEND Nurse Practitioner Family
DX: J18.8 Other pneumonia, unspecified organism (principal); J44.9 Chronic obstructive pulmonary disease, unspecified; G47.30 Sleep apnea, unspecified; Z93.0 Tracheostomy status
CPT/HCPCS: 71046